=== PATIENT | female | born 1970 | race Two or more races ===

== ENCOUNTER 2017-08-10 02:09 | Emergency (ER) | payer BC, MEDICAID, OTHER ==
[~2017-08-10] VITALS: Ht 162.6 cm; Wt 55.0 kg
[2017-08-10 02:13] VITALS: BP 146/93
[2017-08-10] MEDS ORDERED: VENL150C PO (03:20)
== END 2017-08-10 03:48 | disposition home or self-care (01) ==
LOC: ED 03:40
DX: K02.9 Dental caries, unspecified (principal)
CPT/HCPCS: 99283

== ENCOUNTER 2017-09-13 05:32 | Emergency (ER) | payer MEDICAID ==
[~2017-09-13] VITALS: Ht 162.6 cm; Wt 52.2 kg
[~2017-09-13 05:32] MED LIST: VENL150C PO
[2017-09-13 05:35] VITALS: BP 134/95
== END 2017-09-13 07:09 | disposition home or self-care (01) ==
LOC: ED 07:08
DX: K02.9 Dental caries, unspecified (principal)
CPT/HCPCS: 99283